=== PATIENT | female | born 1985 | race Caucasian/White ===

== ENCOUNTER 2016-12-06 13:08 | Inpatient (IN) | payer OTHER ==
[2016-12-06] MEDS ORDERED: METHYLERGONOVINE 0.2 MG/ML 1 ML AMP IM PRN (13:26)
[2016-12-06] MEDS ORDERED: OXYTOCIN 10 UNIT/ML 1 ML VIAL IM PRN (13:26)
[2016-12-06] MEDS ORDERED: CARBOPROST TROMETHAMINE 250 MCG/ML 1 ML AMP IM PRN (13:26)
[2016-12-06] MEDS ORDERED: TERBUTALINE 1 MG/ML VIAL SQ PRN (13:26)
[2016-12-06] MEDS ORDERED: LIDOCAINE 1% (PF) 10 MG/ML (30 ML SDV) SQ PRN (13:26)
[2016-12-06] MEDS ORDERED: LACTATED RINGERS 1,000 ML IV SCH (13:30)
[2016-12-06 13:56] VITALS: BMI 30.4
[2016-12-06 14:11] LABS: Basophils % (A) 0 %; CH 32.9; CHCM 35.3; Eosinophils # (A) 0.1 k/uL (0-0.7); Eosinophils % (A) 0 %; HCT 40.2 % (34.0-46.0); HDW 2.45; HGB 13.7 gm/dL (11.4-16.0); Luc # (Auto) 0.24; Luc % (Auto) 1; Lymphocytes # (A) 1.4 k/uL (1.0-4.8); Lymphocytes % (A) 8 %; MCH 31.9 pg (25.0-35.0); MCHC 34.1 g/dL (31.0-37.0); MCV 93.7 fL (80.0-100.0); Mean Platelet Volume 10.4; Monocytes # (A) 0.7 k/uL (0-1.0); Monocytes % (A) 4 %; Neutrophils # (A) 15.1 k/uL (1.3-7.7); Neutrophils % (A) 86 %; RBC 4.29 m/uL (3.80-5.40); RDW 13.2 % (11.5-15.5); WBC 17.6 k/uL (3.8-10.6); WBC (Perox) 17.78
--- NOTE | 2016-12-06 15:04 | P.HPOB ---
History of Present Illness H&P Date: 12/06/16 Chief Complaint: Strong regular uterine contractions This is a 31-year-old white female 2 para 0010 EDC 12/03/2016 at 40-3/7 weeks' gestation. Patient presented with strong regular uterine contractions. Fetus is been active throughout the . She denies vaginal bleeding or fluid leakage. history is significant for blood type A+, rubella status immune, group B strep cultures negative, hepatitis B surface antigen negative, HIV testing negative, gonorrhea and chlamydia cultures negative, initial urine drug screen positive for DAYANARA see, repeat urine drug screen negative. One-hour Glucola 121. Social history patient is single, father of the baby is present and involved, she has good family support, she denies alcohol or other drug use through the . 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 Past medical history is significant for chronic sinusitis as well as ovarian cysts. Patient has a history of hypercalcemia. Past surgical history is negative. Current medications [place] vitamins twice daily. ALLERGIES NO KNOWN DRUG ALLERGIES. On exam this is a pleasant white female, 5 foot 6 inches, 187 pounds, initial blood pressure 134/94 in active labor. The general physical exam is within normal limits. The cervix on admission is 8 cm dilated, 100% effaced, intact membranes, vertex presentation, -1 station. heart tones consistent with reactive NST. Impression: 40-3/7 weeks intrauterine , active labor, all signs reassuring. Plan: Close maternal and surveillance. Epidural has been offered and declined. Anticipate normal spontaneous vaginal delivery. Past Medical History Past Medical History: No Reported History Additional Past Medical History / Comment(s): Ovarian Cysts History of Any Multi-Drug Resistant Organisms: None Reported Past Surgical History: No Surgical Hx Reported Past Anesthesia/Blood Transfusion Reactions: No Reported Reaction Past Psychological History: No Psychological Hx Reported Smoking Status: Never smoker Past Alcohol Use History: Occasional Past Drug Use History: None Reported, Marijuana - Past Family History Mother Family Medical History: Diabetes Mellitus Medications and Allergies Home Medications Medication Instructions Recorded Confirmed Type Ibuprofen [Motrin] 800 mg PO Q8HR PRN #21 tab 03/17/15 Rx Allergies Allergy/AdvReac Type Severity Reaction Status Date / Time No Known Allergies Allergy Verified 12/06/16 13:11 Exam - Vital Signs Vital signs: Vital Signs Temp Pulse Resp BP 12/06/16 14:55 98.5 F 107 H 18 138/77 12/06/16 13:42 98.5 F 83 18 143/93 Intake and Output 12/06/16 12/06/16 12/06/16 06:59 14:59 22:59 Other: Weight 85.729 kg Patient Weight 12/07/16 06:59 Weight 85.729 kg Results Result Diagrams: 12/06/16 13:57 Abnormal Lab Results - Last 24 Hours (Table) 12/06/16 Range/Units 13:57 WBC 17.6 H (3.8-10.6) k/uL Neutrophils # 15.1 H (1.3-7.7) k/uL
[2016-12-06] MEDS ORDERED: Acetaminophen-Codeine 300-30mg TAB PO PRN (15:07)
[2016-12-06] MEDS ORDERED: BENZOCAINE/MENTHOL SPRAY 1 GM/SPRAY AEROSOL TOPICAL PRN (15:07)
[2016-12-06] MEDS ORDERED: WITCH HAZEL 1 EACH MED..PAD TOPICAL PRN (15:07)
[2016-12-06] MEDS ORDERED: diphenhydrAMINE ELIXIR 25 MG/10 ML CUP PO PRN (15:07)
[2016-12-06] MEDS ORDERED: LANOLIN CREAM 5 GM TUBE TOPICAL PRN (15:07)
[2016-12-06] MEDS ORDERED: ZOLPIDEM 5 MG TAB PO PRN (15:07)
[2016-12-06] MEDS ORDERED: HYDROCORTISONE 2.5% RECTAL CREAM 30 GM TUBE RECTAL PRN (15:07)
[2016-12-06] MEDS ORDERED: diphenhydrAMINE 50 MG/ML 1 ML VIAL IVP PRN ×2 (15:07)
[2016-12-06] MEDS ORDERED: diphenhydrAMINE 50 MG CAP PO PRN (15:07)
[2016-12-06] MEDS ORDERED: diphenhydrAMINE 25 MG CAP PO PRN (15:07)
[2016-12-06] MEDS ORDERED: SIMETHICONE 80 MG CHEWABLE PO PRN (15:07)
[2016-12-06] MEDS ORDERED: ACETAMINOPHEN TAB 325 MG TAB PO PRN (15:07)
--- NOTE | 2016-12-06 15:07 | P.PROBDLV ---
Vaginal Delivery Note - . Vaginal Delivery Note: This is a 31-year-old white female 2 para 0010 EDC 12/03/2016 at 40-3/7 weeks' gestation. Patient presented in active spontaneous labor. was essentially unremarkable, group B strep cultures negative, rubella status immune, blood type A+. Please see my dictated history and physical for details. Artificial amniorrhexis revealed clear fluid. Patient progressed very swiftly through the first stage of labor, oxytocin was not deemed necessary. Analgesic was offered and declined. She became completely dilated at 1415 hrs. and began the second stage of labor at that time. The perineal body was prepped and draped in usual sterile fashion. heart tones were reassuring throughout the first and second stages of labor. Infant's head crowned occiput anterior and he restituted accordingly. There was no nuchal cord noted. The oropharynx, nasopharynx, and external nares were all bulb suctioned on the perineal body. The anterior shoulder was gently and spontaneously delivered from underneath the pubic symphysis. Patient officially delivered a liveborn male infant at 1444 hours. Umbilical cord was doubly clamped and ligated, he was handed to waiting nurses for evaluation where scores of 8 and 9 at one and 5 minutes respectively were given. Placenta delivered spontaneously, it was inspected and noted to be intact with trivascular cord at 1448 hours. At this time the uterus was massaged. Bleeding was minimal. The perineal body was prepped and draped in usual sterile fashion. Inspection of the cervix, vagina, perineum, periurethral, and perirectal areas revealed a small first- degree perineal laceration at 6:00. This was injected with lidocaine and repaired in the usual fashion using 3-0 Vicryl suture. Approximation was excellent. Fundus is firm and in the midline, symmetric and 18 week size. Estimated blood loss 250 mL's. weighed 7 lbs. 15 oz. or 06/02/2004 grams. The patient and her family are requesting circumcision further son.
[2016-12-06] MEDS ORDERED: OXYTOCIN 20 UNITS/1000 ML NS 1,000 ML IV SCH (16:30)
[2016-12-06] MEDS: IBUPROFEN 600 MG TAB PO PRN (18:59)
[2016-12-06] MEDS: SENNOSIDES-DOCUSATE SODIUM 1 EACH TAB PO SCH (19:01)
[2016-12-07] MEDS: IBUPROFEN 600 MG TAB PO PRN ×2 (00:28→08:39)
[2016-12-07 00:30] VITALS: RESP 16
[2016-12-07] MEDS: SENNOSIDES-DOCUSATE SODIUM 1 EACH TAB PO SCH (08:39)
[2016-12-07 08:48] VITALS: BP 137/85; PULSE 83; TEMP 97.5
--- NOTE | 2016-12-07 12:15 | P.DS ---
Providers Date of admission: 12/06/16 13:20 Expected date of discharge: 12/07/16 Attending physician: Cesia Patterson Primary care physician: [facility] Course: This 31-year-old 2 para 0010 EDC 12/03/2016 at 40-3/7 weeks' gestation presented in active spontaneous labor. Uterine contractions were strong and regular. She denied vaginal bleeding or fluid leakage. Fetus is been active throughout the . essentially unremarkable, group B strep cultures negative, rubella status immune. Blood type A positive. Please see dictated history and physical for details. Patient was admitted and declined analgesia. Oxytocin was not deemed necessary. She went on to swiftly deliver a liveborn male infant with scores of 8 and 9 at one and 5 minutes respectively. weight 06/02/2004 grams or 7 lbs. 15 oz. There was a small first-degree perineal laceration easily repaired. Estimated blood loss 250 mL's. Please see my dictated delivery note for details. This morning the patient is doing well. She is voiding, ambulating and passing flatus without difficulty. Vital signs are stable and she is afebrile. Fundus is firm and in the midline, symmetric and 18 week size. Extremities are negative for edema. Breasts are not engorged. Breast-feeding is going well. Circumcision has been performed on her . Patient is judged to be in excellent condition for discharge home. She is being discharged at this time. She will follow-up in the office in 6 weeks. I reminded her no intercourse, tampons or douching. She will continue taking her vitamin daily. She will use [id number] ibuprofen products, 200 mg pills, 3 every 6 hours as needed for pain. I've asked her to call me with any fevers shakes or chills, foul smelling or copious lochia, with the passage of large blood clots, with any pain not alleviated by over-the- counter products, or indeed with any concerns. 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 Patient Condition at Discharge: Good Plan - Discharge Summary New Discharge Prescriptions: No Action Ibuprofen [Motrin] 800 mg PO Q8HR PRN #21 tab PRN Reason: Pain Discharge Medication List Ibuprofen [Motrin] 800 mg PO Q8HR PRN #21 tab 12/19/15 [Rx] Follow up Appointment(s)/Referral(s): Cesia Patterson MD [STAFF PHYSICIAN] - 6 Weeks (6 ) Discharge Disposition: HOME SELF-CARE
== END 2016-12-07 15:30 | disposition home or self-care (01) | DRG 775 ==
LOC: FBPOP 13:08 → 4FBP 13:20
PROVIDERS: ADMIT Obstetrics & Gynecology; ATTEND Obstetrics & Gynecology
PROC: 10E0XZZ Delivery of Products of Conception, External Approach (ICD-10-PCS; principal; 2016-12-06)
PROC: 0HQ9XZZ Repair Perineum Skin, External Approach (ICD-10-PCS; 2016-12-06)
PROC: 10907ZC Drainage of Amniotic Fluid, Therapeutic from Products of Conception, Via Natural or Artificial Opening (ICD-10-PCS; 2016-12-06)
DX: O48.0 Post-term pregnancy (principal); J32.9 Chronic sinusitis, unspecified; O70.0 First degree perineal laceration during delivery; O99.52 Diseases of the respiratory system complicating childbirth; Z83.3 Family history of diabetes mellitus; Z3A.40 40 weeks gestation of pregnancy; Z87.42 Personal history of other diseases of the female genital tract; Z37.0 Single live birth
CPT/HCPCS: 59025; 85025; 88307; 99213